=== PATIENT | female | born 1965 | race Two or more races ===

== ENCOUNTER 2018-10-20 06:28 | Day surgery (SDC) | payer OTHER ==
[~2018-10-20] VITALS: Ht 152.4 cm; Wt 83.9 kg
[~2018-10-20 06:28] MED LIST: CLARIT PO; METFORMIN HCL500 MG PO; PROMETRIUM200 MG PO; SYNTHROID75 MCG PO
== END 2018-10-21 19:00 | disposition home or self-care (01) ==
LOC: CIR.AMB 06:28 → O/R 16:28 → CIR.AMB 16:28 → O/R 16:29 → SURG 16:29 → CIR.AMB 10-21 19:00
DX: K80.10 Calculus of gallbladder with chronic cholecystitis without obstruction (principal); Z77.22 Contact with and (suspected) exposure to environmental tobacco smoke (acute) (chronic)